=== PATIENT | female | born 1990 | race Caucasian/White ===

== ENCOUNTER 2021-01-20 19:23 | Emergency (ER) | payer OTHER ==
[~2021-01-20 19:23] MED LIST: AMOXICILLIN500 MG PO; ANAPROX DS550 MG PO; DICLEGIS DR 101 EACH PO; FLONASE 0.05% 121 EA NAS; K-DUR 2020 MEQ PO; MACROBID100 M1 PO; MICROGESTIN 1.51 TAB PO; ZITHROMAX Z PA250 MG PO; ZOFRAN ODT4 MG SL
[2021-01-20 19:32] VITALS: BP 147/95
[2021-01-20] MEDS ORDERED: AMOXICILLIN500 M2 PO (20:09)
== END 2021-01-20 21:01 | disposition home or self-care (01) ==
LOC: ED 19:23
DX: K08.89 Other specified disorders of teeth and supporting structures (principal); Z79.899 Other long term (current) drug therapy

== ENCOUNTER 2022-10-14 18:19 | Emergency (ER) | payer OTHER ==
[~2022-10-14 18:19] MED LIST changes: +AMOXICILLIN500 M2 PO
[2022-10-14 18:28] VITALS: BP 119/75
[2022-10-14] MEDS ORDERED: AMOX-CLAV 875-1 EACH PO (18:56)
[2022-10-14] MEDS ORDERED: IBU800 MG PO (18:56)
== END 2022-10-14 19:09 | disposition home or self-care (01) ==
LOC: ED 18:19
DX: S02.5XXA Fracture of tooth (traumatic), initial encounter for closed fracture (principal); Z79.899 Other long term (current) drug therapy; X58.XXXA Exposure to other specified factors, initial encounter; Y93.89 Activity, other specified; Y92.89 Other specified places as the place of occurrence of the external cause; Y99.8 Other external cause status